=== PATIENT | male | born 1945 | race Caucasian/White ===

== ENCOUNTER 2017-02-25 20:35 | Inpatient (IN) | payer MEDICARE ==
[~2017-02-25] VITALS: Ht 165.1 cm; Wt 57.6 kg
[2017-02-25 21:07] VITALS: BP 125/72
--- NOTE | 2017-02-25 21:45 | NUR ---
Patient transferred to bed 2. RN evaluating patient at bedside.
--- NOTE | 2017-02-25 21:53 | NUR ---
SECURITY HAS PT BELONGINGS, PT UNDRESSED PLACED IN HOSPITAL GOWN.
--- NOTE | 2017-02-25 21:54 | NUR ---
71Y/M BIBA FOR SUICIDAL IDEATION. PMH HTN. NKA. PER EMS PT WAS FOUND AT HOME ALOC, LARGE ABRASION TO FORHEAD PT UNABLE TO RECALL HOW IT HAPPENED TO PD, BATHTUB WAS FOUDN TO BE CLOGGED W/ WATER AND ELECTRICAL TV FOUND NEAR. PT IS AWAKE AND ALERT BUT HAS SLURRED SPEECH AND SPEECH IS INCOMPREHENSIBLE. NO BLEEDING NOTED AT THIS TIME FROM ABRASION. PT UNALBE TO STATE IF HE TOOK MEDS OR ALCOHOL. PT BELONGINGS REMOVED, WILL CONTINUE TO MONITOR PT.
[2017-02-25 22:21] LABS: APPEARANCE,URINE SL CLOUDY (CLEAR); BILIRUBIN,URINE 1+ (NEGATIVE); BLOOD, URINE 2+ (NEGATIVE); COLOR,URINE YELLOW (YELLOW); LEUKOCYTE ESTERASE ,URINE NEGATIVE (NEGATIVE); NITRITE, URINE NEGATIVE (NEGATIVE); PH,URINE 5.5 (5.0-9.0); UGLUCOSE NEGATIVE (NEGATIVE)
[2017-02-25 22:35] LABS: RBC,URINE 0-5 (RARE) /HPF (0-5); WBC,URINE 0-5 (RARE) /HPF (0-5)
[2017-02-25 22:36] LABS: ALBUMIN 3.8 g/dL (3.4-5.0); ASPARTATE AMINOTRANSFERASE 63 U/L (15-37); CARBON DIOXIDE 27.7 mmol/L (21-32); CHLORIDE 101 mmol/L (98-107); CREATININE 1.1 mg/dL (0.7-1.3); GLUCOSE 116 mg/dL (74-106); POTASSIUM 3.7 mmol/L (3.5-5.1); SODIUM SERUM 137 mmol/L (136-145); UREA NITROGEN, BLOOD 38 mg/dL (7-18)
[2017-02-25 22:38] LABS: BARBITURATE, URINE NEG. ng/ml (NEG <=200); BENZODIAZEPINE, URINE NEG. ng/mL (NEG <=200); CANNABINOID, URINE NEG. ng/mL (NEG <=50); COCAINE, URINE NEG. ng/mL (NEG <=300); OPIATE, URINE NEG. ng/mL (NEG <=2000); PHENCYCLIDINE SCREEN,URINE NEG. ng/mL (NEG <=25)
--- NOTE | 2017-02-25 22:38 | NUR ---
PT CAN NOT RECALL HOME MEDS/DOSE AT THIS TIME
--- NOTE | 2017-02-25 22:43 | NUR ---
Patient returned from CT scan. RN re-evaluating patient at bedside.
[2017-02-25 23:00] LABS: HEMOGLOBIN 13.7 g/dL (12.0-18.0); MEAN CORPUSCULAR HEMOGLOBIN 33 pg (27-31); MEAN CORPUSCULAR HGB CONC 34 g/dL (33-37); MEAN CORPUSCULAR VOLUME 95 fL (80-94); PLATELET COUNT (AUTO) 160 K/uL (140-450); RED BLOOD CELL COUNT(AUTO) 4.21 MIL/uL (4.20-6.10); RED CELL DISTRIBUTION WIDTH 12.9 % (11.6-13.7); WHITE BLOOD COUNT (AUTO) 8.7 K/uL (4.8-10.8)
[2017-02-25 23:32] LABS: LYMPHOCYTES % (MANUAL) 9 % (20-46); MONOCYTES % (MANUAL) 11 % (5-12)
[2017-02-25] MEDS ORDERED: ASPIRIN 81 MG TAB.CHEW PO ONE (23:40)
--- NOTE | 2017-02-26 00:49 | NUR ---
AWAITING PLACEMENT ON FLOOR, PT SLEEPING IN BED, WILL CONTINUE TO MONITOR.
[2017-02-26] MEDS: NACL 0.9% 1,000 ML IV SCH ×4 (01:18→19:01)
[2017-02-26] MEDS ORDERED: ACETAMINOPHEN 325 MG TAB PO PRN (01:20)
[2017-02-26] MEDS ORDERED: hePARIN / DEXT 5% PREMIX 250 ML IV SCH ×2 (01:20→02:50)
[2017-02-26] MEDS ORDERED: ONDANSETRON 4 MG/2 ML VIAL IVP PRN (01:20)
[2017-02-26] MEDS ORDERED: HEPARIN PER PHARMACY MC PRN (01:20)
--- NOTE | 2017-02-26 02:02 | NUR ---
pt sleeping in bed, vss, at this time keeping pt in er bed till further notice.
[2017-02-26 02:13] LABS: PROTHROMBIN TIME 10.9 secs (10.8-13.4)
[2017-02-26 02:34] LABS: FREE T4 (FREE THYROXINE) 1.01 ng/dL (0.76-1.46); MAGNESIUM 1.8 mg/dL (1.8-2.4); PHOSPHORUS 3.5 mg/dL (2.5-4.9); THYROID STIMULATING HORMONE 1.02 uIU/mL (0.34-3.74)
--- NOTE | 2017-02-26 03:40 | NUR ---
Patient appears to be resting comfortably in bed. Vital Signs within normal limits. Respirations even and unlabored.
--- NOTE | 2017-02-26 05:00 | NUR ---
PT SLEEPING IN BED COMORTABLY, WILL CONTINUE TO MONITOR.
--- NOTE | 2017-02-26 07:20 | NUR ---
1L NS RUNNING AT 100ML/HR, WENT TO ICU FLOOR, 250 ML INFUSED, NURSE IN ICU WILL CONTINUE TO RUN PER ORDERS.
--- NOTE | 2017-02-26 07:20 | NUR ---
Patient will be admitted to care of dr aiken. Admited to icu. Will go to room 2. Belongings list completed. Report to mala.
--- NOTE | 2017-02-26 07:40 | NUR ---
RECEIVED PT FROM ER AT 0730 VIA [employer]. PT IS AWAKE, ALERT AND ORIENTED X3, VERBALLY RESPONSIVE, ABLE TO FOLLOW THE COMMANDS. PT IN ROOM AIR, 98% O2 SAT,T 97.8, P 72, R 18, BP 146/66. BILATERAL LUNGS SOUND CLEAR. ACTIVE BOWEL SOUND FROM ALL 4 QUADS. PERIPHERAL LINE ON LEFT ANTECUBITAL 18G WITH NS 100ML/HR. ABRASION ON FRONTAL HEAD, BILATERAL KNEES REDNESS, MULTIPLE SMALL DISCOLORATIONS ON RIGHT FOREARM NOTED. NO SUICIDAL IDEATION AT THIS TIME. BILATERAL NARES SWAB FOR MRSA SCREEN. CALL LIGHT WITHIN THE REACH. WILL CONTINUE TO MONITOR.
--- NOTE | 2017-02-26 08:30 | NUR ---
[facility] AND DR. MARTINEZ HERE AT BEDSIDE TO SEE THE PT, WILL FOLLOW THE ORDER.
--- NOTE | 2017-02-26 08:47 | NUR ---
PATIENT HAS BEEN SCREENED AND CATEGORIZED HIGH NUTRITION RISK. PATIENT WILL BE SEEN WITHIN 1-2 DAYS OF ADMISSION. 02/26/17-02/27/17
[2017-02-26 09:27] LABS: HEMATOCRIT 38.8 % (36-52); HEMOGLOBIN 12.9 g/dL (12.0-18.0); MEAN CORPUSCULAR HEMOGLOBIN 32 pg (27-31); MEAN CORPUSCULAR HGB CONC 33 g/dL (33-37); MEAN CORPUSCULAR VOLUME 97 fL (80-94); PLATELET COUNT (AUTO) 114 K/uL (140-450); RED CELL DISTRIBUTION WIDTH 12.9 % (11.6-13.7); WHITE BLOOD COUNT (AUTO) 5.8 K/uL (4.8-10.8)
--- NOTE | 2017-02-26 09:30 | NUR ---
GIVEN SCHEDULED MEDICATIONS, TOLERATED WELL. NO ACUTE DISTRESS NOTED. WILL CONTINUE TO MONITOR.
[2017-02-26] MEDS: ECOTRIN 81 MG TABEC PO SCH (09:31)
[2017-02-26] MEDS: DOCUSATE SODIUM 100 MG GELCAP PO SCH ×2 (09:31→21:10)
[2017-02-26] MEDS: ATORVASTATIN 20 MG TAB PO SCH (09:31)
[2017-02-26] MEDS: METOPROLOL 25 MG TAB PO SCH ×2 (09:31→21:00)
[2017-02-26] MEDS: LISINOPRIL 5 MG TAB PO SCH (09:32)
[2017-02-26 09:35] LABS: MAGNESIUM 1.9 mg/dL (1.8-2.4); PHOSPHORUS 2.8 mg/dL (2.5-4.9)
[2017-02-26 09:45] LABS: ANION GAP 9.4 (8-16); CARBON DIOXIDE 28.8 mmol/L (21-32); CHLORIDE 102 mmol/L (98-107); CREATININE 0.8 mg/dL (0.7-1.3); GLUCOSE 88 mg/dL (74-106); POTASSIUM 3.2 mmol/L (3.5-5.1); SODIUM SERUM 137 mmol/L (136-145); UREA NITROGEN, BLOOD 28 mg/dL (7-18)
--- NOTE | 2017-02-26 10:08 | NUR ---
RECEIVED CRITICAL LAB RESULT TROPONIN 0.374. PAGED DR. MARTINEZ 3 TIMES AT THIS TIME. WAITING CALL BACK, WILL FOLLOW UP.
--- NOTE | 2017-02-26 10:40 | NUR ---
NOTIFIED , NO NEW ORDER. Addendum: 02/26/17 at 1108 by Marixa Garner RN ABOUT TROPONIN RESULT
[2017-02-26 10:45] VITALS: BP 143/66
[2017-02-26 10:45] LABS: LYMPHOCYTES % (MANUAL) 12 % (20-46); MONOCYTES % (MANUAL) 6 % (5-12)
--- NOTE | 2017-02-26 11:30 | NUR ---
RECEIVED REPORT FROM HELGA DOTY PT IS AWAKE AND ALERT ORIENTED X3 HAS BRUISE ON MIDDLE OF FOREHEAD AND BOTH KNEES . HE HAS IV ONLEFT AC INFUSING IV NS AT 80ML/HR. HE VOID IN URENAL UP TO BED SIDE CHAIR.
--- NOTE | 2017-02-26 11:30 | NUR ---
PHYSICAL THERAPY IS DONE, PT TOLERATED WELL. NO ACUTE DISTRESS NOTED. VS IS STABLE.
--- NOTE | 2017-02-26 12:45 | NUR ---
REGULAR LUNCH TAKEN WELL . PT AWAK AND ALERT DENIED PAIN.
--- NOTE | 2017-02-26 15:32 | NUR ---
CM NOTE INITIAL REVIEW [facility] / FAX# [phone], ATTN: ADRY #[phone] H&P AND [id number] FAXED TO [facility] / FAX# [phone], C: [phone]
[2017-02-26 16:00] VITALS: BP 106/57
--- NOTE | 2017-02-26 16:15 | NUR ---
PT GET CONFUSED PULLED OUT HIS IV. RESTART ON LEFT FOREARM WITH #20
--- NOTE | 2017-02-26 17:20 | NUR ---
SEEN BY DR. AYERS AT BED SIDE PT. AWAKE AND ALERT ABLE TO CARRY ON CONVERSATION WITH THE DOCTOR.
--- NOTE | 2017-02-26 18:12 | NUR ---
DR AYERS KEEP PT. ON 2292 DO TO DANGER SELFAND GRAVE DISABILITY.
[2017-02-26 19:18] LABS: PROTHROMBIN TIME 10.4 secs (10.8-13.4)
--- NOTE | 2017-02-26 19:30 | NUR ---
RECEIVED PATIENT ON BED AWAKE BUT SOMEWHAT CONFUSED; ABLE TO MOVE LIMBS FREELY. BREATHING EVEN AND UNLABORED, ON ROOM AIR. CARDIACSCOPE SHOWS ON SINUS RHYTHYM, NO ARRHYTHMIAS SEEN. COMMENCING ON IVF NORMAL SALINE 80 ML/HR AND ON HEPARIN DRIP AT 700 UNITS/HR VIA G20 IV CANNULA ON LEFT ARM; PATENT AND INTACT. ABDOMEN IS SOFT, NON TENDER; ACTIVE BOWEL SOUNDS.
[2017-02-26 20:00] VITALS: BP 127/63
[2017-02-26] MEDS ORDERED: CHLORHEXADINE GLUC 2% CLOTH TP SCH (20:30)
--- NOTE | 2017-02-26 20:30 | NUR ---
SEEN BY DR. DUQUE, WITH ORDER TO STOP HEPARIN DRIP AND TO START PATIENT ON HEPARIN SUBQ.
--- NOTE | 2017-02-26 20:45 | NUR ---
PATIENT STILL CONFUSE AND DISORIENTED; TRIES TO GET OUT FROM THE BED AND PULLED OUT HIS PULSE OXIMETER BUT WITH DIRECTION AND CUES HE WENT BACK TO HIS BED CALMLY.
--- NOTE | 2017-02-26 21:00 | NUR ---
LOPRESSOR DOSE NOT GIVEN BECAUSE PATIENT IS ON SINUS BRADYCARDIA HR 54/MIN ONLY.
--- NOTE | 2017-02-26 21:00 | NUR ---
FOR TRANSFER TO TELEMETRY UNIT ROOM 109 B; PATIENT INFORMED AND AWARE.
--- NOTE | 2017-02-26 22:00 | NUR ---
INITIAL DOSE OF HEPARIN SUBQ GIVEN ORDERED.
--- NOTE | 2017-02-26 22:15 | NUR ---
TRANSFERRED TO TELE UNIT PER BED;ENDORSED TO SOREN GALVEZ FOR CONTINUITY OF CARE.
--- NOTE | 2017-02-26 22:16 | NUR ---
RECEIVED PT FROM ICU IN STABLE CONDITION. NO S/S OF DISTRESS NOTED. PT IS AAOX2. IV TO L FA 20G PATENT AND INTACT, INFUSING WELL. SKIN IS INTACT BUT PT HAS BRUISING ON KNEES AND HEAD. SKIN IS WARM AND DRY TO TOUCH. RESPIRATIONS ARE EVEN AND UNLABORED. INITIAL ASSESSMENT COMPLETED. PLAN OF CARE DISCUSSED WITH PT, PT VERBALIZED UNDERSTANDING. ALL SAFETY PRECAUTIONS MET, CALL LIGHT WITHIN REACH, WILL CONTINUE TO MONITOR
[2017-02-27] VITALS (7 sets, daily range): BP systolic 126–151; BP diastolic 61–78
[2017-02-27 07:09] LABS: CHOL/HDL RATIO 2.2 (1-4.5)
--- NOTE | 2017-02-27 07:19 | NUR ---
REPORT GIVEN TO DAY NURSE FOR CONTINUITY OF CARE PT IN STABLE CONDITION
--- NOTE | 2017-02-27 07:20 | NUR ---
REPORT GIVEN TO LEIGH DOTY FOR CONTINUITY OF CARE PT IN STABLE CONDITION. NO S/S OF DISTRESS NOTED
--- NOTE | 2017-02-27 08:00 | NUR ---
RECEIVED REPORT FROM TEETEE DOTY, AT BEDSIDE. PATIENT ALERT AWAKE ORIENTED TO NAME ONLY. NOT IN ANY DISTRESS NOTED. INITIAL ASSESSMENT INITIATED. WITH IVF ON GOING AND INFUSING WELL, ON MONITOR SHOWS SB HR 57, DENIES ANY PAIN. DENIES OF HURTING HIMSELF. ON ONE TO ONE SITTER , NEEDS ATTENDED, CALL LIGHT WITHIN REACH. WILL CONTINUE TO MONITOR.
[2017-02-27] MEDS ORDERED: MUPIROCIN 2% OINT 22 GM TUBE TP SCH (09:00)
[2017-02-27] MEDS: DOCUSATE SODIUM 100 MG GELCAP PO SCH ×2 (09:10→20:52)
[2017-02-27] MEDS: METOPROLOL 25 MG TAB PO SCH ×2 (09:10→20:52)
[2017-02-27] MEDS: LISINOPRIL 5 MG TAB PO SCH (09:11)
[2017-02-27] MEDS: ECOTRIN 81 MG TABEC PO SCH (09:11)
[2017-02-27] MEDS: ATORVASTATIN 20 MG TAB PO SCH (09:11)
[2017-02-27] MEDS ORDERED: POTASSIUM CHLORIDE 20 MEQ, LIDOCAINE 1% 25 MG in NACL 0.9% 250 ML IV SCH (12:30)
--- NOTE | 2017-02-27 15:17 | NUR ---
P.T. NOTES D/C FROM P.T. AFTER TX, NURSING TO AMBULATE PATIENT AD KALLI.
--- NOTE | 2017-02-27 15:59 | NUR ---
02/27/17 RD INITIAL ASSESSMENT COMPLETED PLEASE REFER TO NUTRITION ASSESSMENT UNDER CARE ACTIVITY FOR ESTIMATED NUTRITIONAL NEEDS. 1. CONTINUE WITH CURRENT DIET, PT TO CONTINUE TO MEET >90% ESTIMATED KCALS AND PRO NEEDS/DAY 2. RD TO FOLLOW-UP 5-7 DAYS, LOW RISK ELOY GARCIA, RD
--- NOTE | 2017-02-27 16:08 | NUR ---
This Poke In contacted Patient's APS Child Day Care Teacher Pattie Juarez at to discuss Patients case and follow up with status. Child Day Care Teacher was not available and this fiction and nonfiction writer prose left a voicemail MSG requesting for a call back in regards to patient's status on case.
--- NOTE | 2017-02-27 16:08 | NUR ---
SPOKE WITH ESAU FROM [facility] ABOUT PLACEMENT. HE SAID HE DID HAVE A MALE BED. I FAXED HIM INFORMATION,. TRIED TO CALL ADRY FROM [facility] AND WAS TOLD TO CALL RAIZA, . SHE SAID ADRY WASN'T AVAILABLE AND TO FAX YESTERDAY'S AND TODAY'S REVIEW TO HER AT [phone]. I TOLD HER THAT I FAXED INFORMATION TO [facility]. SHE SAID THAT IF THEY ACCEPT THE PATIENT, THE AUTH FOR [facility] IS [id number] AND THE TRANSPORT AUTH NUMBER IS [id number]. [facility] [place]
--- NOTE | 2017-02-27 16:48 | NUR ---
RECEIVED A CALL FROM [facility]oc FROM [facility]. THEY HAVE ACCEPTED THE PATIENT. HE CAN GO TO ROOM 5A UNDER DR. MCGRAW. DR. OAKES AWARE. LEIGH DOTY AWARE. I SPOKE WITH RAIZA FROM [facility] AND INFORMED HER.
[2017-02-27] MEDS ORDERED: ASPI-1173 PO (16:55)
[2017-02-27] MEDS ORDERED: METO25TE2 PO (16:55)
[2017-02-27] MEDS ORDERED: ATOR20TA40 PO (16:55)
--- NOTE | 2017-02-27 17:26 | NUR ---
CALLED [facility] FOR TRANSPORT AND [employer]ER WILL BE 10;30.
--- NOTE | 2017-02-27 17:34 | NUR ---
REPORT GIVEN TO PORFIRIO AT [facility].
--- NOTE | 2017-02-27 18:12 | NUR ---
REPORT GIVEN TO VANE DOTY FOR CONTINUITY OF CARE. PATIENT IN STABLE CONDITION.
--- NOTE | 2017-02-27 18:20 | NUR ---
RECEIVED REPORT FROM DAY RN, PATIENT RESTING IN BED, 1:1 SITTER AT BEDSIDE. NO S/S OF DISTRESS NOTED, RESPIRATION EVEN AND UNLABORED, SAFETY MEASURE ENSURED ,WILL CONTINUE TO MONITOR.
[2017-02-27] MEDS: NACL 0.9% 1,000 ML IV SCH ×2 (18:35→20:42)
--- NOTE | 2017-02-27 20:48 | NUR ---
PLT COUNT 114, HELD HEPARINE
--- NOTE | 2017-02-27 20:55 | NUR ---
DUE MEDICATION GIVEN, PATIENT TOLERATED WELL. NO S/S OF DISTRESS NOTED, RESPIRATION EVEN AND UNLABORED, NOTED PATIENT IS TALKING TO HIMSELF, CHARGE NURSE SAID PATIENT IS NOT 5150 HOLD.
--- NOTE | 2017-02-27 22:45 | NUR ---
REPORT GIVEN TO WALDO HUTCHINS FROM [facility], PATIENT IS IN STABLE CONDITION.
== END 2017-02-27 22:53 | DRG 280 ==
LOC: MED 20:35 → MTU 02-26 00:20 → MIC 02-26 07:21 → MTU 02-26 22:15
PROVIDERS: ADMIT Family Medicine Sports Medicine; ATTEND Family Medicine Sports Medicine
DX: I21.A1 Myocardial infarction type 2 (principal); N17.0 Acute kidney failure with tubular necrosis; G93.41 Metabolic encephalopathy; F02.81 Dementia in other diseases classified elsewhere, unspecified severity, with behavioral disturbance; G30.9 Alzheimer's disease, unspecified; I24.9 Acute ischemic heart disease, unspecified; I25.10 Atherosclerotic heart disease of native coronary artery without angina pectoris; I10 Essential (primary) hypertension; G90.9 Disorder of the autonomic nervous system, unspecified; S00.83XA Contusion of other part of head, initial encounter; E87.6 Hypokalemia; R62.7 Adult failure to thrive; R31.9 Hematuria, unspecified; R41.9 Unspecified symptoms and signs involving cognitive functions and awareness; W19.XXXA Unspecified fall, initial encounter; Y93.89 Activity, other specified; Y92.038 Other place in apartment as the place of occurrence of the external cause; Y99.8 Other external cause status
CPT/HCPCS: 36415; 70450; 71010; 76770; 80048; 80053; 80305; 81001; 82140; 82150; 83036; 83690; 83735; 83880; 84100; 84439; 84443; 84484; 85025; 85610; 85730; 87081; 93005; 93880; 97110; 97116; 97530; 99285; G0482; J1644; J2001; J3480; J7030; Q0092